=== PATIENT | female | born 1960 | race Caucasian/White ===

== ENCOUNTER → 2016-09-12 | Outpatient (CLI) | payer OTHER ==
[2014-10-01 11:00] VITALS: BP 166/101
[~2016-09-12] MED LIST: CALC-44 PO; CELE200C PO; FLUT9.9S NS; GUAI600T38 PO; HYDR-2666 PO; LISI10TA2 PO; METF500T4 PO; ONDA4TAB10 SL
--- NOTE | 2016-09-12 10:47 | RAD ---
Abdominal ultrasound, 09/12/2016: History: Cirrhosis. The gallbladder is surgically absent. The liver measures 17 cm in craniocaudad extent at the level of the right lobe. No hepatic mass is identified. No bile duct dilatation is seen. The pancreas was largely obscured by overlying bowel. The spleen is mildly enlarged measuring 14.1 cm in craniocaudad extent. No renal abnormality is detected. The abdominal aorta is of normal caliber. The visualized portions of the inferior vena cava show no abnormality. No free fluid is evident in the abdomen. IMPRESSION: 1. Mild splenomegaly. 2. Status post cholecystectomy. 3. The abdominal ultrasound is otherwise unremarkable.
== END | disposition home or self-care (01) ==
LOC: US 07:51
PROVIDERS: ATTEND Family Medicine
DX: K70.30 Alcoholic cirrhosis of liver without ascites (principal); K75.81 Nonalcoholic steatohepatitis (NASH); R16.1 Splenomegaly, not elsewhere classified; Z90.49 Acquired absence of other specified parts of digestive tract
CPT/HCPCS: 76700

== ENCOUNTER → 2017-02-06 | Outpatient (CLI) | payer OTHER ==
[2014-10-01 11:00] VITALS: BP 166/101
[~2017-02-06] MED LIST changes: -GUAI600T38 PO; +GUAI600T47 PO; -HYDR-2666 PO; +HYDR-2758 PO
--- NOTE | 2017-02-06 15:42 | RAD ---
CT of the paranasal sinuses, 02/06/2017: History: Acute sinusitis Noncontrast scans were obtained with multiplanar reconstructions produced. There is no fluid or significant mucosal thickening in the paranasal sinuses. The ostiomeatal complexes are patent. The orbital contents are unremarkable. No bony abnormality is detected. IMPRESSION: No significant paranasal sinus abnormality is identified. PQRS Compliance Statement: One or more of the following individualized dose reduction techniques were utilized for this examination: 1. Automated exposure control 2. Adjustment of the mA and/or kV according to patient size 3. Use of iterative reconstruction technique
== END | disposition home or self-care (01) ==
LOC: CT 15:12
PROVIDERS: ATTEND Otolaryngology
DX: J01.91 Acute recurrent sinusitis, unspecified (principal)
CPT/HCPCS: 70486

== ENCOUNTER 2017-03-04 15:26 | Inpatient (IN) | payer OTHER ==
[~2017-03-04] VITALS: Ht 157.5 cm; Wt 78.0 kg
[2017-03-04 15:48] VITALS: BP 152/93
[2017-03-04] MEDS ORDERED: IV NORMAL SALINE 1,000ML 1,000 ML IV SCH (17:00)
[2017-03-04 17:21] LABS: BASO % 0 % (0-3); EOS # 0.1 x10^3/uL (0.0-0.7); EOS % 2 % (0-3); HEMATOCRIT 41.3 % (36.0-47.0); HEMOGLOBIN 14.3 g/dL (12.0-15.5); LYMPH # 2.3 x10^3/uL (1.0-4.8); LYMPH % 27 % (24-48); MEAN CORPUSCULAR HEMOGLOBIN 30 pg (25-35); MEAN CORPUSCULAR HGB CONC 35 g/dL (31-37); MEAN CORPUSCULAR VOLUME 87 fL (79-100); MONO # 0.9 x10^3/uL (0.0-1.1); MONO % 11 % (0-9); NEUT # 5.1 x10^3uL (1.8-7.7); NEUT % 60 % (31-73); PLATELET COUNT 103 x10^3/uL (140-400); RED BLOOD COUNT 4.75 x10^6/uL (3.50-5.40); RED CELL DISTRIBUTION WIDTH 15.7 % (11.5-14.5); WHITE BLOOD COUNT 8.5 x10^3/uL (4.0-11.0)
[2017-03-04] MEDS ORDERED: MELA3TAB2 PO (17:26)
[2017-03-04] MEDS ORDERED: VALA10005 PO (17:26)
[2017-03-04] MEDS ORDERED: NAPR220C4 PO (17:26)
[2017-03-04] MEDS ORDERED: MONT10TA9 PO (17:26)
[2017-03-04] MEDS ORDERED: LIDO30CR TP (17:26)
[2017-03-04 17:27] LABS: ALBUMIN 3.3 g/dL (3.4-5.0); ALBUMIN/GLOBULIN RATIO 0.8 (1.0-1.7); CALCIUM 8.3 mg/dL (8.5-10.1); CREATININE 0.8 mg/dL (0.6-1.0); GFR 73.7; MAGNESIUM 1.8 mg/dL (1.8-2.4); POTASSIUM 3.4 mmol/L (3.5-5.1); TOTAL PROTEIN 7.4 g/dL (6.4-8.2)
[2017-03-04] MEDS ORDERED: LOPERAMIDE 2 MG/10 ML PO PRN (17:45)
[2017-03-04 18:15] VITALS: BP 155/84
[2017-03-04] MEDS: MVI, ADULT NO.4 WITH VIT K 10 ML, FOLIC ACID 1 MG, THIAMINE 100 MG in IV DEXTROSE 5 %-0... IV SCH ×4 (18:17)
[2017-03-04] MEDS: ACYCLOVIR 200 MG CAPSULE PO SCH ×2 (18:19→20:45)
[2017-03-04] MEDS: PANTOPRAZOLE IV PUSH 40 MG VIAL. IVP SCH (18:19)
--- NOTE | 2017-03-04 20:40 | HP ---
ADMIT DATE: 03/04/2017 REASON FOR ADMISSION: Diarrhea, dehydration, shingles. HISTORY OF PRESENT ILLNESS: This is a 56-year-old female, who broke out with shingles last . She was placed on Valtrex on Thursday for her shingles, but then developed frequent diarrhea. Not clear whether it is associated with Valtrex, although this can cause abdominal pain. She continues to have problems with shingles as far as pain and burning. PAST MEDICAL HISTORY: Hypertension, osteoarthritis, nonalcoholic steatohepatitis, thrombocytopenia. PAST SURGICAL HISTORY: Cholecystectomy, breast reduction in 1999, bilateral tubal ligation in 1984. MEDICATIONS: Reviewed and are available on the JUL. She had been placed 2 days ago on valacyclovir 1000 mg 3 times a day and lidocaine cream. SOCIAL HISTORY: , has 3 children, does not smoke, rare alcohol. She works at the [employer] in [place]. FAMILY HISTORY: Breast cancer, maternal aunt; cervical cancer, maternal grandmother. IMMUNIZATIONS: She had DTaP in 02/2017. ALLERGIES: None. REVIEW OF SYSTEMS: Positive for copious amounts of diarrhea, mild abdominal pain, some weight gain, pain at the area of the shingles. Denies fever, sore throat. States urine is very concentrated. OBJECTIVE: VITAL SIGNS: Blood pressure 152/93, pulse 90, respirations 18, pulse ox is 93% on room air, temperature 97.8. GENERAL: A 56-year-old, in no acute distress. HEENT: Mucous membranes are somewhat dry. NECK: Supple. LUNGS: Clear. CARDIOVASCULAR: Regular rhythm and rate. ABDOMEN: Soft, mildly diffusely tender. Bowel sounds were positive with large amounts. SKIN: The patient has moderate shingles starting on the right hip running along with dermatome to a large ulcer right at about T10. LABORATORY DATA: Platelet count 103,000; otherwise, okay. Other is pending. ASSESSMENT: 1. Herpes zoster. 2. Nausea and diarrhea, questionable etiology. No history of antibiotics in the last few months. 3. Hypertension. 4. Pain secondary to herpes zoster. PLAN: IV fluids. We will switch her to acyclovir to see if that may be a little bit easier on her stomach. Zofran for nausea, clear liquids and Toradol for pain and will see her again tomorrow. ROSANGELA MENDOSA DO DR: Dorene JOB#: [id number] / [id number]
[2017-03-04] MEDS: POTASSIUM CHLORIDE 40 MEQ in IV NORMAL SALINE 1,000ML 1,000 ML IV SCH (20:44)
[2017-03-04] MEDS: MONTELUKAST 10 MG TABLET. PO SCH (20:45)
[2017-03-04] MEDS: ACYCLOVIR 5% TOPICAL OINT 5GM TUBE. TP SCH (20:45)
[2017-03-04] MEDS: MELATONIN 3 MG TABLET PO SCH (20:45)
[2017-03-04] MEDS: LIDOCAINE 2% TOPICAL JELLY 30GM TUBE. TP SCH (20:45)
[2017-03-04] MEDS: ONDANSETRON ODT 4 MG TAB.RAPDIS PO PRN (20:45)
[2017-03-04 22:11] VITALS: BP 152/93
[2017-03-05] MEDS: KETOROLAC 15 MG/ML VIAL. IV PRN ×4 (00:38→21:27)
[2017-03-05] MEDS: POTASSIUM CHLORIDE 40 MEQ in IV NORMAL SALINE 1,000ML 1,000 ML IV SCH (04:20)
[2017-03-05 05:03] VITALS: BP 114/68
[2017-03-05] MEDS: PANTOPRAZOLE IV PUSH 40 MG VIAL. IVP SCH (05:38)
[2017-03-05] MEDS: ACYCLOVIR 200 MG CAPSULE PO SCH ×5 (05:38→19:34)
[2017-03-05 05:49] LABS: BASO % 0 % (0-3); EOS # 0.2 x10^3/uL (0.0-0.7); EOS % 3 % (0-3); HEMATOCRIT 38.3 % (36.0-47.0); HEMOGLOBIN 13.2 g/dL (12.0-15.5); LYMPH # 2.6 x10^3/uL (1.0-4.8); LYMPH % 34 % (24-48); MEAN CORPUSCULAR HEMOGLOBIN 30 pg (25-35); MEAN CORPUSCULAR HGB CONC 35 g/dL (31-37); MEAN CORPUSCULAR VOLUME 87 fL (79-100); MONO # 0.8 x10^3/uL (0.0-1.1); MONO % 10 % (0-9); NEUT % 52 % (31-73); PLATELET COUNT 102 x10^3/uL (140-400); RED BLOOD COUNT 4.38 x10^6/uL (3.50-5.40); RED CELL DISTRIBUTION WIDTH 15.5 % (11.5-14.5); WHITE BLOOD COUNT 7.6 x10^3/uL (4.0-11.0)
[2017-03-05 06:01] LABS: ALBUMIN 2.6 g/dL (3.4-5.0); ALBUMIN/GLOBULIN RATIO 0.7 (1.0-1.7); CALCIUM 7.7 mg/dL (8.5-10.1); CREATININE 0.7 mg/dL (0.6-1.0); GFR 85.9; MAGNESIUM 1.8 mg/dL (1.8-2.4); POTASSIUM 3.9 mmol/L (3.5-5.1); TOTAL BILIRUBIN 1.8 mg/dL (0.2-1.0); TOTAL PROTEIN 6.2 g/dL (6.4-8.2)
[2017-03-05] MEDS: LISINOPRIL 10 MG TABLET PO SCH (08:51)
[2017-03-05] MEDS: MVI, ADULT NO.4 WITH VIT K 10 ML, FOLIC ACID 1 MG, THIAMINE 100 MG in IV DEXTROSE 5 %-0... IV SCH ×4 (08:51)
[2017-03-05] MEDS: ACYCLOVIR 5% TOPICAL OINT 5GM TUBE. TP SCH ×3 (08:51→19:34)
[2017-03-05] MEDS: LIDOCAINE 2% TOPICAL JELLY 30GM TUBE. TP SCH ×3 (08:56→19:38)
[2017-03-05] MEDS ORDERED: IOHEXOL 240 MG/ML 50ML VIAL. ONE (09:54)
[2017-03-05] MEDS ORDERED: IOHEXOL 300 MG/ML 75 ML VIAL. IV ONE (10:20)
[2017-03-05 11:16] VITALS: BP 161/83
--- NOTE | 2017-03-05 15:16 | RAD ---
EXAM: CT abdomen/pelvis with contrast. HISTORY: Abdominal pain, nausea and diarrhea. TECHNIQUE: Computed tomography of the abdomen and pelvis was performed after the intravenous administration of 75 mL Omnipaque 300. COMPARISON: 05/09/2014. FINDINGS: Lung windows through the visualized portions of the bases reveal mild atelectasis. Bone windows reveal no suspicious lesions. The gallbladder is surgically absent. The common duct measures 12 mm but tapers normally distally. There is no clear distal obstructing lesion. There is trace perihepatic ascites. There are small periesophageal varices. There appears to be an intrahepatic portal venous to systemic venous shunt within the superior aspect of the left lobe. There is no gross hepatic surface nodularity or focal hepatic lesions. The spleen is mildly enlarged at 14.5 cm. The pancreas and adrenal glands are unremarkable. Small calculi in the right kidney measures 3 mm or less. The left kidney is unremarkable. There are scattered small lymph nodes throughout the retroperitoneum, not pathologically enlarged. Prominent lymph nodes in the right lower quadrant mesentery measure up to 15 x 10 mm. These appear stable since the prior study. There is mild diffuse small bowel wall thickening. There is no clear colonic wall thickening. There is no obstruction. There is a moderately sized defect along the anterior abdominal wall in the right upper quadrant. Intra-abdominal fat protrudes mildly without a clear fascial disruption. IMPRESSION: 1. Trace ascites. Small esophageal varices. Mild splenomegaly. Prominent intrahepatic portal venous to systemic venous shunting the left hepatic lobe. Correlate for cirrhotic change and portal hypertension. 2. Mild small bowel wall thickening may reflect infectious enteritis, vasculitis or enteropathy of portal hypertension. These are favored over inflammatory bowel disease given the diffuse extent. 3. Defect along the anterior abdominal wall of the right upper quadrant status post cholecystectomy without a clear discrete hernia, at least on this nonstressed exam. 4. Mild to moderate intra-/extrahepatic biliary dilatation status post cholecystectomy. Correlate for cholestasis to assess significance. *One or more of the following individualized dose reduction techniques were utilized for this examination: 1. Automated exposure control. 2. Adjustment of the mA and/or kV according to patient size. 3. Use of iterative reconstruction technique.
[2017-03-05] MEDS: MONTELUKAST 10 MG TABLET. PO SCH (19:33)
[2017-03-05] MEDS: MELATONIN 3 MG TABLET PO SCH (19:34)
[2017-03-05] MEDS: ONDANSETRON ODT 4 MG TAB.RAPDIS PO PRN (19:34)
[2017-03-05 20:04] VITALS: BP 154/95
--- NOTE | 2017-03-06 01:41 | PN ---
DATE: 03/05/2017 CURRENT PROBLEMS: 1. Dehydration. 2. Diarrhea. 3. Herpes zoster. 4. Pain management. 5. Hypertension. 6. Nonalcoholic steatohepatitis. 7. Mild thrombocytopenia. 8. Protein-calorie malnutrition. NARRATIVE: Doing better today. She is still having some abdominal pain, notes diffuse across the whole abdomen. She does not seem to be sick to her stomach with switching to p.o. acyclovir. It is not clear whether the Valtrex caused the abdominal pain and diarrhea, but the diarrhea has resolved since yesterday evening. She is ready to advance her diet this morning. She has received IV fluids for hydration and the Toradol has really helped her back pain, her pain from the herpes zoster. OBJECTIVE: VITAL SIGNS: Blood pressure 161/83, temperature 97.5, pulse 61, respirations 20, pulse ox 96% on room air. GENERAL: Color is improved. HEENT: Her tongue was moist. LUNGS: Clear. CARDIOVASCULAR: Regular rhythm and rate. The herpes zoster is still quite angry in appearance, starting on the right hip and radiating up to around the T10-T11 area. EXTREMITIES: Without edema. LABORATORY DATA: Platelet count 102,000. Albumin is 2.6, most likely dilutional, but it was 3.3. PLAN: Discontinue the IV fluids, advance her diet, get a CT of the abdomen to make sure we are not missing anything and start planning for discharge. ROSANGELA MENDOSA DO DR: CITLALY/janice JOB#: [id number] / [id number]
[2017-03-06] MEDS: KETOROLAC 15 MG/ML VIAL. IV PRN ×2 (05:57→12:30)
[2017-03-06 06:08] LABS: BASO % 0 % (0-3); EOS # 0.3 x10^3/uL (0.0-0.7); EOS % 4 % (0-3); HEMOGLOBIN 12.8 g/dL (12.0-15.5); LYMPH # 2.1 x10^3/uL (1.0-4.8); LYMPH % 35 % (24-48); MEAN CORPUSCULAR HEMOGLOBIN 30 pg (25-35); MEAN CORPUSCULAR HGB CONC 35 g/dL (31-37); MEAN CORPUSCULAR VOLUME 87 fL (79-100); MONO # 0.6 x10^3/uL (0.0-1.1); MONO % 10 % (0-9); NEUT # 3.1 x10^3uL (1.8-7.7); NEUT % 51 % (31-73); PLATELET COUNT 108 x10^3/uL (140-400); RED BLOOD COUNT 4.25 x10^6/uL (3.50-5.40); RED CELL DISTRIBUTION WIDTH 15.4 % (11.5-14.5)
[2017-03-06 06:16] LABS: ALBUMIN 2.6 g/dL (3.4-5.0); ALBUMIN/GLOBULIN RATIO 0.7 (1.0-1.7); CALCIUM 7.9 mg/dL (8.5-10.1); CREATININE 0.7 mg/dL (0.6-1.0); GFR 85.9; MAGNESIUM 1.8 mg/dL (1.8-2.4); POTASSIUM 3.6 mmol/L (3.5-5.1); TOTAL BILIRUBIN 1.4 mg/dL (0.2-1.0); TOTAL PROTEIN 6.2 g/dL (6.4-8.2)
[2017-03-06 06:19] VITALS: BP 145/84
[2017-03-06] MEDS: ACYCLOVIR 200 MG CAPSULE PO SCH ×2 (07:25→10:53)
[2017-03-06] MEDS: PANTOPRAZOLE IV PUSH 40 MG VIAL. IVP SCH (07:26)
[2017-03-06] MEDS: LISINOPRIL 10 MG TABLET PO SCH (07:26)
[2017-03-06] MEDS: ACYCLOVIR 5% TOPICAL OINT 5GM TUBE. TP SCH (07:32)
[2017-03-06] MEDS: LIDOCAINE 2% TOPICAL JELLY 30GM TUBE. TP SCH (07:32)
[2017-03-06 10:52] VITALS: BP 138/81
[2017-03-06] MEDS ORDERED: HYDR-2758 PO (13:15)
[2017-03-06] MEDS ORDERED: ACYC-63 PO (13:15)
--- NOTE | 2017-03-06 19:22 | DS ---
DATE OF DISCHARGE: 03/06/2017 DISCHARGE DIAGNOSES: 1. Herpes zoster. 2. Pain management. 3. Diarrhea, resolved. 4. Dehydration, resolved. 5. Nausea, resolved. 6. Nonalcoholic steatohepatitis. 7. Hypertension. 8. Mild splenomegaly. 9. Mild thrombocytopenia. 10. Protein calorie malnutrition. HOSPITAL COURSE: A 56-year-old female who lives alone and broke out herpes zoster little over a week ago. She has had increasing pain with nausea and some diarrhea. She was started on valacyclovir 4 days after breaking out and this may have caused some of the stomach upset. She was switched to acyclovir p.o. in the hospital, which she seemed to tolerate a little bit better. She received IV fluids and IV Toradol, which really help with her herpetic type pain. She was on the day of discharge, able to tolerate a regular diet. OBJECTIVE: VITAL SIGNS: Blood pressure 138/81, pulse 66, respirations 18, pulse ox 96% on room air, temperature 98.3. GENERAL: The patient was afebrile throughout, the herpetic rash today is still quite angry, but there is no open draining lesions, they are moving toward healing and crusting over. LABORATORY DATA: Platelet count 108,000. Otherwise, bilirubin is 1.4 down from 2, AST is 47 and albumin is 2.6. C. diff was negative. PLAN: Discharge home. I recommend that she be off work for an additional week. She can get the zoster vaccine 14 days after being on the antiviral. She will continue to keep wound covered. We will finish another 4 days of acyclovir. Prescribe #15 hydrocodone 5/325 to only and possibly take 1 at night. She did ask me about the Tylenol , I feel that this small amount will not cause any problems, but she may check with Dr. Pelaez. For other medications, see [facility]. She was discharged in good condition. ROSANGELA MENDOSA DO DR: CITLALY/janice JOB#: [id number] / [id number]
[2017-03-07] MEDS ORDERED: PANTOPRAZOLE 40 MG TABLET. PO SCH (07:30)
== END 2017-03-06 14:00 | disposition home or self-care (01) | DRG 596 ==
LOC: 1 SOUTH 15:31
PROVIDERS: ADMIT Family Medicine; ATTEND Family Medicine
DX: B02.9 Zoster without complications (principal); D69.6 Thrombocytopenia, unspecified; E46 Unspecified protein-calorie malnutrition; K75.81 Nonalcoholic steatohepatitis (NASH); R16.1 Splenomegaly, not elsewhere classified; E86.0 Dehydration; Z68.31 Body mass index [BMI] 31.0-31.9, adult; I10 Essential (primary) hypertension; Z80.3 Family history of malignant neoplasm of breast; Z80.49 Family history of malignant neoplasm of other genital organs; Z98.51 Tubal ligation status; M19.90 Unspecified osteoarthritis, unspecified site; Z90.49 Acquired absence of other specified parts of digestive tract; Z60.2 Problems related to living alone
CPT/HCPCS: 36415; 74177; 80053; 83735; 85025; 87324; C9113; J1885; Q0162; J7030

== ENCOUNTER 2018-01-29 10:01 | Emergency (ER) | payer BC, OTHER ==
[~2018-01-29] VITALS: Ht 165.1 cm; Wt 80.0 kg
[~2018-01-29 10:01] MED LIST changes: +ACYC-63 PO; +LIDO30CR TP; +MELA3TAB2 PO; +METF500T16 PO; -METF500T4 PO; +MONT10TA9 PO; +NAPR220C4 PO; +VALA10005 PO
[2018-01-29] MEDS ORDERED: IV NORMAL SALINE 1,000ML 1,000 ML IV SCH (10:27)
[2018-01-29 10:42] LABS: BASO % 1 % (0-3); EOS # 0.2 x10^3/uL (0.0-0.7); EOS % 3 % (0-3); HEMATOCRIT 44.3 % (36.0-47.0); LYMPH # 3.6 x10^3/uL (1.0-4.8); LYMPH % 51 % (24-48); MEAN CORPUSCULAR HEMOGLOBIN 29 pg (25-35); MEAN CORPUSCULAR HGB CONC 34 g/dL (31-37); MEAN CORPUSCULAR VOLUME 87 fL (79-100); MONO # 0.7 x10^3/uL (0.0-1.1); MONO % 9 % (0-9); NEUT # 2.6 x10^3uL (1.8-7.7); NEUT % 36 % (31-73); PLATELET COUNT 113 x10^3/uL (140-400); RED BLOOD COUNT 5.12 x10^6/uL (3.50-5.40); WHITE BLOOD COUNT 7.1 x10^3/uL (4.0-11.0)
[2018-01-29 10:47] LABS: ALBUMIN 3.9 g/dL (3.4-5.0); ALBUMIN/GLOBULIN RATIO 1.1 (1.0-1.7); CALCIUM 8.3 mg/dL (8.5-10.1); CREATININE 0.7 mg/dL (0.6-1.0); GFR 85.6; POTASSIUM 3.7 mmol/L (3.5-5.1); TOTAL BILIRUBIN 1.6 mg/dL (0.2-1.0); TOTAL PROTEIN 7.6 g/dL (6.4-8.2)
[2018-01-29] MEDS ORDERED: KETOROLAC 30 MG/ML VIAL. IV ONE (11:00)
[2018-01-29] MEDS ORDERED: ONDANSETRON PF 4 MG/2 ML VIAL. IV ONE (11:00)
[2018-01-29] MEDS ORDERED: MORPHINE SULFATE 4 MG/ML DISP.SYRIN. ONE (11:08)
[2018-01-29 11:11] LABS: BILIRUBIN,URINE NEG (NEG); CLARITY,URINE HAZY; COLOR,URINE YELLOW; GLUCOSE,URINE NEG (NEG); NITRITE,URINE NEG (NEG); UROBILINOGEN,URINE 0.2 mg/dL (0.2 mg/dL)
[2018-01-29 11:12] LABS: BACTERIA,URINE FEW /HPF (0-FEW); HYALINE CASTS, URINE OCC /HPF; SQUAMOUS EPITHELIAL CELL,UR MANY /LPF
--- NOTE | 2018-01-29 11:26 | RAD ---
CT ABDOMEN PELVIS WO CONTRAST Indication: RIGHT FLANK PAIN ONSET LAST NIGHT Exposure: One or more of the following individualized dose reduction techniques were utilized for this examination: 1. Automated exposure control 2. Adjustment of the mA and/or kV according to patient size 3. Use of iterative reconstruction technique. Comparison: Images from March 05, 2017 but no available report from that exam Contrast: No intravenous contrast given. No oral contrast per request. Evaluation of solid viscera, bowel and vasculature is compromised by the noncontrast technique. Lower thorax: Lung bases are clear. Liver: Unremarkable Spleen: Enlarged, measures 13.5 cm in long axis. Pancreas: Unremarkable Adrenals: No evidence of mass. Kidneys: No obvious mass. Urinary tracts: Mild right hydronephrosis and ureteric dilatation through the ureterovesical junction. There is no evidence of an obstructive calculus in the ureter at this time. However there is a small calculus within the dependent urinary bladder which may be a recently passed stone. This measures 6 mm in long axis. Small nonobstructive calculus in the right kidney. No evidence of left urolithiasis or obstruction. Gallbladder: Not seen Aorta: Tortuous, no aneurysm Lymph nodes: Prominent retroperitoneal and mesenteric lymph nodes measure up to 10 mm short axis. These are roughly similar as the prior study. GI tract: Colonic diverticulosis. No evidence of acute colitis. No evidence of bowel obstruction. Appendix is not clearly seen. Reproductive organs:No evidence of mass. Urinary bladder: Diffuse wall thickening, greater than what was seen on prior study. Peritoneum: No evidence of pneumoperitoneum. No free fluid. Abdominal wall: There is some dehiscence/atrophy of the right lateral anterior abdominal wall but no evidence of hernia. Spine: Degenerative spondylosis. Transitional anatomy at the lumbosacral junction. Appearance and alignment are similar. Left convexity lumbar scoliosis. Bones: Mild degenerative changes of both hips. IMPRESSION: 1. Small calculus within the urinary bladder. Mild right hydronephrosis and ureteric dilatation, and this calculus has likely recently passed from the right collecting system or ureter. 2. Small nonobstructive intrarenal right calculus. 3. Diffuse urinary bladder wall thickening, suspicious for cystitis. 4. Stable splenomegaly. 5. Mild nonspecific retroperitoneal and mesenteric lymph node enlargement, appears roughly stable since prior study. Electronically signed by: Aurelio Garrett MD (01/29/2018 11:23 AM) [facility]
[2018-01-29] MEDS ORDERED: MORPHINE SULFATE 4 MG/ML DISP.SYRIN. IV ONE (11:30)
--- NOTE | 2018-01-29 11:53 | PHYS DOC ---
Past History Past Medical History: Cancer, Hypertension, Liver Disease Past Surgical History: Cancer Surgery Smoking: Non-smoker Alcohol Use: Occasionally Drug Use: None Adult General Chief Complaint Chief Complaint: right flank pain HPI HPI Patient is a 57 year old female who presents with complaining of right flank pain. Patient complaining of sudden onset of sharp severe right flank pain with radiation to right groin and genital area since 8 PM as a constant pain that gradually getting worse. Patient rated her pain 10 over 10. Patient complaining of nausea and one episode of vomiting. Patient states she was treated for UTI recently with Keflex. Patient denies urinary symptoms, fever and chills, diarrhea and constipation, dehydration. Patient states she has history of kidney stone previously. Review of Systems Review of Systems Constitutional: Denies fever or chills [] Eyes: Denies change in visual acuity, redness, or eye pain [] HENT: Denies nasal congestion or sore throat [] Respiratory: Denies cough or shortness of breath [] Cardiovascular: No additional information not addressed in HPI [] GI: Reports abdominal pain, nausea, vomiting, denies bloody stools or diarrhea [ ] : Denies dysuria or hematuria , reports flank pain Musculoskeletal: Denies back pain or joint pain [] Integument: Denies rash or skin lesions [] Neurologic: Denies headache, focal weakness or sensory changes [] Endocrine: Denies polyuria or polydipsia [] All other systems were reviewed and found to be within normal limits, except as documented in this note. Current Medications Current Medications Current Medications Medications (Trade) Dose Ordered Sig/Tanya Start Time Stop Time Status Last Admin Dose Admin Ketorolac Tromethamine (Toradol 30mg Vial) 30 mg 1X ONCE 01/29/18 11:00 01/29/18 11:01 01/29/18 10:41 30 MG Ondansetron HCl (Zofran) 4 mg 1X ONCE 01/29/18 11:00 01/29/18 11:01 01/29/18 10:41 4 MG Sodium Chloride 1,000 ml @ 1,000 mls/hr Q1H 01/29/18 10:27 01/29/18 11:26 01/29/18 10:27 1,000 MLS/HR Allergies Allergies Allergies Coded Allergies Type Severity Reaction Last Updated Verified No Known Drug Allergies 04/29/14 No Physical Exam Physical Exam Constitutional: Well developed, well nourished, moderate distress, non-toxic appearance. [] HENT: Normocephalic, atraumatic, oropharynx moist. [] Eyes: PERRLA, EOMI, conjunctiva normal, no discharge. [] Neck: Normal range of motion, no tenderness, supple, no stridor. [] Cardiovascular:Heart rate regular rhythm, no murmur [] Lungs & Thorax: Bilateral breath sounds clear to auscultation [] Abdomen: Bowel sounds normal, soft, no tenderness, no masses, no pulsatile masses. [] Skin: Warm, dry, no erythema, no rash. [] Back: No tenderness, no CVA tenderness. [] Extremities: No tenderness, no cyanosis, no clubbing, ROM intact, no edema. [] Neurologic: Alert and oriented X 3, normal motor function, normal sensory function, no focal deficits noted. [] Psychologic: Affect normal, judgement normal, mood normal. [] Current Patient Data Vital Signs Vital Signs Date Time Temp Pulse Resp B/P (MAP) Pulse Ox O2 Delivery O2 Flow Rate FiO2 01/29/18 10:24 97.7 52 16 99 Room Air Lab Results Laboratory Tests Test 01/29/18 10:15 White Blood Count 7.1 x10^3/uL (4.0-11.0) Red Blood Count 5.12 x10^6/uL (3.50-5.40) Hemoglobin 15.0 g/dL (12.0-15.5) Hematocrit 44.3 % (36.0-47.0) Mean Corpuscular Volume 87 fL (79-100) Mean Corpuscular Hemoglobin 29 pg (25-35) Mean Corpuscular Hemoglobin Concent 34 g/dL (31-37) Red Cell Distribution Width 15.0 % (11.5-14.5) H Platelet Count 113 x10^3/uL (140-400) L Neutrophils (%) (Auto) 36 % (31-73) Lymphocytes (%) (Auto) 51 % (24-48) H Monocytes (%) (Auto) 9 % (0-9) Eosinophils (%) (Auto) 3 % (0-3) Basophils (%) (Auto) 1 % (0-3) Neutrophils # (Auto) 2.6 x10^3uL (1.8-7.7) Lymphocytes # (Auto) 3.6 x10^3/uL (1.0-4.8) Monocytes # (Auto) 0.7 x10^3/uL (0.0-1.1) Eosinophils # (Auto) 0.2 x10^3/uL (0.0-0.7) Basophils # (Auto) 0.0 x10^3/uL (0.0-0.2) Sodium Level 140 mmol/L (136-145) Potassium Level 3.7 mmol/L (3.5-5.1) Chloride Level 105 mmol/L (98-107) Carbon Dioxide Level 25 mmol/L (21-32) Anion Gap 10 (6-14) Blood Urea Nitrogen 25 mg/dL (7-20) H Creatinine 0.7 mg/dL (0.6-1.0) Estimated GFR (Cockcroft-Gault) 85.6 BUN/Creatinine Ratio 36 (6-20) H Glucose Level 112 mg/dL (70-99) H Calcium Level 8.3 mg/dL (8.5-10.1) L Total Bilirubin 1.6 mg/dL (0.2-1.0) H Aspartate Amino Transferase (AST) 100 U/L (15-37) H Alanine Aminotransferase (ALT) 128 U/L (14-59) H Alkaline Phosphatase 137 U/L (46-116) H Total Protein 7.6 g/dL (6.4-8.2) Albumin 3.9 g/dL (3.4-5.0) Albumin/Globulin Ratio 1.1 (1.0-1.7) Lipase 372 U/L (73-393) EKG EKG [] Radiology/Procedures Radiology/Procedures [address] [address] IMAGING REPORT Signed PATIENT: SHIRA FUENTES ACCOUNT: [id number] : 1960 LOCATION: ER AGE: 57 SEX: F EXAM STATUS: REG ER ORD. PHYSICIAN: LEOBARDO MANJARREZ MD REASON: right flank pain PROCEDURE: CT ABDOMEN PELVIS WO CONTRAST CT ABDOMEN PELVIS WO CONTRAST Indication: RIGHT FLANK PAIN ONSET LAST NIGHT Exposure: One or more of the following individualized dose reduction techniques were utilized for this examination: 1. Automated exposure control 2. Adjustment of the mA and/or kV according to patient size 3. Use of iterative reconstruction technique. Comparison: Images from March 05, 2017 but no available report from that exam Contrast: No intravenous contrast given. No oral contrast per request. Evaluation of solid viscera, bowel and vasculature is compromised by the noncontrast technique. Lower thorax: Lung bases are clear. Liver: Unremarkable Spleen: Enlarged, measures 13.5 cm in long axis. Pancreas: Unremarkable Adrenals: No evidence of mass. Kidneys: No obvious mass. Urinary tracts: Mild right hydronephrosis and ureteric dilatation through the ureterovesical junction. There is no evidence of an obstructive calculus in the ureter at this time. However there is a small calculus within the dependent urinary bladder which may be a recently passed stone. This measures 6 mm in long axis. Small nonobstructive calculus in the right kidney. No evidence of left urolithiasis or obstruction. Gallbladder: Not seen Aorta: Tortuous, no aneurysm Lymph nodes: Prominent retroperitoneal and mesenteric lymph nodes measure up to 10 mm short axis. These are roughly similar as the prior study. GI tract: Colonic diverticulosis. No evidence of acute colitis. No evidence of bowel obstruction. Appendix is not clearly seen. Reproductive organs:No evidence of mass. Urinary bladder: Diffuse wall thickening, greater than what was seen on prior study. Peritoneum: No evidence of pneumoperitoneum. No free fluid. Abdominal wall: There is some dehiscence/atrophy of the right lateral anterior abdominal wall but no evidence of hernia. Spine: Degenerative spondylosis. Transitional anatomy at the lumbosacral junction. Appearance and alignment are similar. Left convexity lumbar scoliosis. Bones: Mild degenerative changes of both hips. IMPRESSION: 1. Small calculus within the urinary bladder. Mild right hydronephrosis and ureteric dilatation, and this calculus has likely recently passed from the right collecting system or ureter. 2. Small nonobstructive intrarenal right calculus. 3. Diffuse urinary bladder wall thickening, suspicious for cystitis. 4. Stable splenomegaly. 5. Mild nonspecific retroperitoneal and mesenteric lymph node enlargement, appears roughly stable since prior study. Electronically signed by: Aurelio Garrett MD (01/29/2018 11:23 AM) [id number] DICTATED AND SIGNED BY: AURELIO GARRETT MD DATE: 01/29/18 1104 CC: HERIBERTO LYNN MD; LEOBARDO MANJARREZ MD ~ Course & Med Decision Making Course & Med Decision Making Pertinent Labs and Imaging studies reviewed. (See chart for details) Evaluation of patient in ER showed 57-year-old female patient with complaining of sudden onset of right flank pain and nausea and vomiting 1. Patient had history of kidney stone previously. Patient treated with IV fluid, Zofran, Toradol and morphine and felt better. CT showed 6 mm stone inside the bladder. Patient instructed to increase fluid intake and strain her urine and follow-up with urology on-call. CT shows cystitis with 1-4 WBC and urine and prescription for Cipro was given. Patient has chronic liver problem with elevation of liver function tests and instructed to follow with her primary care physician. Dragon Disclaimer Dragon Disclaimer This electronic medical record was generated, in whole or in part, using a voice recognition dictation system. Departure Departure: Impression: Primary Impression: Renal colic on right side Additional Impressions: Ureterolithiasis Nephrolithiasis Cystitis Abnormal liver function Hydronephrosis Disposition: HOME, SELF-CARE (2014) Condition: IMPROVED Referrals: HERIBERTO LYNN MD (PCP) LUIS ALBERTO MARTIN Patient Instructions: Kidney Stones, Urinary Tract Infection Additional Instructions: Drink plenty of liquids Follow-up with your primary care physician in 3-5 days Return to ER if not getting better Strain all of your urine Follow-up with on-call urology in 2 or 3 Scripts Ondansetron (ZOFRAN ODT) 4 Mg Tab.rapdis 1 TAB SL Q8HRS, #15 TAB Prov: LEOBARDO MANJARREZ MD 01/29/18 Ciprofloxacin Hcl (CIPRO) 250 Mg Tablet 1 TAB PO BID, #14 TAB Prov: LEOBARDO MANJARREZ MD 01/29/18 Tramadol Hcl (ULTRAM) 50 Mg Tablet 50 MG PO PRN Q6HRS PRN for PAIN, #14 TAB Prov: LEOBARDO MANJARREZ MD 01/29/18 Problem Qualifiers LEOBARDO MANJARREZ MD Jan 29, 2018 11:53
[2018-01-29] MEDS ORDERED: TRAM-48 PO (12:25)
[2018-01-29] MEDS ORDERED: ONDA4TAB10 SL (12:25)
[2018-01-29] MEDS ORDERED: CIPR250T30 PO (12:25)
[2018-01-29 12:30] VITALS: BP 150/78
== END 2018-01-29 12:48 | disposition home or self-care (01) ==
LOC: ER 10:01
DX: N13.2 Hydronephrosis with renal and ureteral calculous obstruction (principal); N30.90 Cystitis, unspecified without hematuria; R94.5 Abnormal results of liver function studies; R16.1 Splenomegaly, not elsewhere classified; R11.2 Nausea with vomiting, unspecified; I10 Essential (primary) hypertension
CPT/HCPCS: 36415; 74176; 80053; 81001; 83690; 85025; 87086; 96361; 96374; 96375; 99285; J1885; J2270; J2405; J7030

== ENCOUNTER → 2021-03-28 | Outpatient (CLI) | payer BC, OTHER ==
[~2021-03-28] MED LIST changes: -ACYC-63 PO; +ACYC200C84 PO; +CIPR250T30 PO; +HYDR-2155 PO; -HYDR-2758 PO; -LIDO30CR TP; +LIDO30CR2 TP; +LISI10TA16 PO; -LISI10TA2 PO; -MELA3TAB2 PO; +MELA3TAB4 PO; +MONT10TA80 PO; -MONT10TA9 PO; +TRAM-48 PO
--- NOTE | 2021-03-28 15:36 | RAD ---
DXA BONE DENSITY AXIAL History: Reason: OSTEOPORSIS / Spl. Instructions: / History: Postmenopausal Comparison: August 20, 2010 TECHNIQUE: Dual energy x-ray absorptiometry of the lumbar spine and right hip was performed. T-score of average bone mineral density based was calculated based on standard deviations above or below the expected young adult normal value. Diagnostic definitions were established by the [employer] zation. FINDINGS: The average bone mineral density associated with L1-L4 is 1.070 g/cm^2, corresponding with a T-score of -0.9. Overall decreased compared to 2011. The average total bone mineral density associated with right hip is 0.875 g/cm^2, corresponding with a T-score of -0.7. Right femoral neck T score -1.3. Overall decreased compared to prior 2010. Refer to the worksheets for full detail. IMPRESSION: 1. Osteopenia according to right femoral neck measurement. Average bone mineral density yields a T-s core between -1.0 and -2.5. Fracture risk is increased. Electronically signed by: Rock Rousseau DO (03/28/2021 3:34 PM) [id number]
== END ==
LOC: DXRAD 09:50
PROVIDERS: ATTEND Physician Assistant
DX: Z13.820 Encounter for screening for osteoporosis (principal); M85.88 Other specified disorders of bone density and structure, other site
CPT/HCPCS: 77080